=== PATIENT | male | born 1965 | race Caucasian/White ===

== ENCOUNTER 2024-12-28 15:30 | Emergency (ER) | payer MEDICAID, OTHER ==
[~2024-12-28] VITALS: Ht 165.1 cm; Wt 63.0 kg
[~2024-12-28 15:30] MED LIST: LIDO30CR6 TP; PENT400T72 PO
[2024-12-28 15:34] VITALS: TEMP 98.2
[2024-12-28] MEDS: ACETAMINOPHEN 500 MG TABLET PO ONE (16:46)
[2024-12-28] MEDS: IBUPROFEN 400 MG TABLET PO ONE (16:46)
[2024-12-28 19:30] VITALS: BP 121/78; PULSE 77; RESP 18; O2SAT 99
== END 2024-12-28 19:58 | disposition home or self-care (01) ==
LOC: EMS 15:30
DX: S92.534A Nondisplaced fracture of distal phalanx of right lesser toe(s), initial encounter for closed fracture (principal); Z88.0 Allergy status to penicillin; X50.0XXA Overexertion from strenuous movement or load, initial encounter; Y93.89 Activity, other specified; Y92.89 Other specified places as the place of occurrence of the external cause; Y99.8 Other external cause status
CPT/HCPCS: 99283